=== PATIENT | female | born 1950 | race American Indian/Alaskan Native ===

== ENCOUNTER 2017-09-05 01:15 | Emergency (ER) | payer OTHER, MEDICARE ==
[2017-09-05] MEDS ORDERED: MOTRIN ONE (02:43)
[2017-09-05] MEDS ORDERED: MOTRIN PO ONE (02:45)
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
[2017-09-05 07:11] VITALS: BP 138/75
== END 2017-09-05 07:09 | disposition home or self-care (01) ==
LOC: ED 01:15
DX: S39.012A Strain of muscle, fascia and tendon of lower back, initial encounter (principal); S46.811A Strain of other muscles, fascia and tendons at shoulder and upper arm level, right arm, initial encounter; M25.561 Pain in right knee; M54.2 Cervicalgia; F17.200 Nicotine dependence, unspecified, uncomplicated; V49.9XXA Car occupant (driver) (passenger) injured in unspecified traffic accident, initial encounter; W22.10XA Striking against or struck by unspecified automobile airbag, initial encounter; Y93.89 Activity, other specified; Y99.8 Other external cause status; Y92.413 State road as the place of occurrence of the external cause
CPT/HCPCS: 99283

== ENCOUNTER 2019-01-02 18:34 | Emergency (ER) | payer MEDICARE ==
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
[2019-01-02 19:04] VITALS: BP 144/82
[2019-01-02] MEDS ORDERED: IBUPROFEN PO ONE (23:06)
--- NOTE | 2019-01-02 23:10 | Emergency Department Report ---
- General Chief complaint: Skin/Abscess/Foreign Body Stated complaint: LFT BREAST PULSE/PAIN Time Seen by Provider: 01/02/19 19:01 Source: patient Mode of arrival: Ambulatory Limitations: No Limitations - History of Present Illness Initial comments: 68-year-old -French female states that she has tightness redness and drainage from her left breast 1 week. Patient denies any fever or chills no nausea vomiting. Patient reports that she is taking [id number] pain relief. Patient reports she's had discharge from her nipple. Patient denies any past medical history takes no medications on a daily basis. She reports her last mammogram was maybe 3-6 years ago. Patient does not have a primary care provider. MD complaint: abscess/boil -: week(s) (1) Location: chest (left breasts) Severity scale (0 -10): 10 Quality: aching, sharp Consistency: constant Improves with: none Worsens with: palpation Associated symptoms: denies other symptoms Treatments Prior to Arrival: attempted to drain pus at, other (over the counter acetaminophen.) - Related Data Previous Rx's Medication Instructions Recorded Last Taken Type Cyclobenzaprine HCl [Flexeril 5 MG 5 mg PO TID #20 tab 09/05/17 Unknown Rx TAB] Ibuprofen [Ibuprofen 800] 800 mg PO TID #30 tablet 09/05/17 Unknown Rx Ibuprofen [Motrin 600 MG tab] 600 mg PO Q8H PRN #30 tablet 01/02/19 Unknown Rx cephALEXin [Keflex] 500 mg PO Q8HR #20 cap 01/02/19 Unknown Rx Allergies Allergy/AdvReac Type Severity Reaction Status Date / Time No Known Allergies Allergy Verified 09/05/17 02:45 Abscess Boil HPI - HPI Chief Complaint: Skin/Abscess/Foreign Body Stated Complaint: LFT BREAST PULSE/PAIN Time Seen by Provider: 01/02/19 19:01 Home Medications: Previous Rx's Medication Instructions Recorded Last Taken Type Cyclobenzaprine HCl [Flexeril 5 MG 5 mg PO TID #20 tab 09/05/17 Unknown Rx TAB] Ibuprofen [Ibuprofen 800] 800 mg PO TID #30 tablet 09/05/17 Unknown Rx Ibuprofen [Motrin 600 MG tab] 600 mg PO Q8H PRN #30 tablet 01/02/19 Unknown Rx cephALEXin [Keflex] 500 mg PO Q8HR #20 cap 01/02/19 Unknown Rx Allergies/Adverse Reactions: Allergies Allergy/AdvReac Type Severity Reaction Status Date / Time No Known Allergies Allergy Verified 09/05/17 02:45 ED Review of Systems ROS: Stated complaint: LFT BREAST PULSE/PAIN Other details as noted in HPI Comment: All other systems reviewed and negative Constitutional: denies: chills, fever Skin: lesions (left breasts) ED Past Medical Hx - Past Medical History Previous Medical History?: No - Surgical History Past Surgical History?: Yes Additional Surgical History: cyst removal from left breast - Social History Smoking Status: Current Every Day Smoker Substance Use Type: None - Medications Home Medications: Home Medications Medication Instructions Recorded Confirmed Last Taken Type Cyclobenzaprine HCl [Flexeril 5 MG 5 mg PO TID #20 tab 09/05/17 Unknown Rx TAB] Ibuprofen [Ibuprofen 800] 800 mg PO TID #30 tablet 09/05/17 Unknown Rx Ibuprofen [Motrin 600 MG tab] 600 mg PO Q8H PRN #30 tablet 01/02/19 Unknown Rx cephALEXin [Keflex] 500 mg PO Q8HR #20 cap 01/02/19 Unknown Rx ED Physical Exam - General Limitations: No Limitations General appearance: alert, in no apparent distress - Head Head exam: Present: atraumatic, normocephalic - Eye Eye exam: Present: normal appearance - ENT ENT exam: Present: mucous membranes moist - Neurological Exam Neurological exam: Present: alert, oriented X3, normal gait - Psychiatric Psychiatric exam: Present: normal affect, normal mood - Skin Skin exam: Present: rash - Expanded Skin Exam Expanded Type of lesion: Present: abscess Distribution of rash: other (left breast near nipple and areloa) Description of rash: Present: tenderness, erythematous, swelling, discharge, fluctuant, indurated, other (dimpling of the left breast is appreciated.) ED Course Vital Signs 01/02/19 19:01 Temperature 98.7 F Pulse Rate 86 Respiratory 18 Rate Blood Pressure 144/82 O2 Sat by Pulse 96 Oximetry Critical care attestation.: If time is entered above; I have spent that time in minutes in the direct care of this critically ill patient, excluding procedure time. ED Disposition Clinical Impression: Abscess of breast, left Disposition: DC- TO HOME OR SELFCARE Is pt being admited?: No Does the pt Need Aspirin: No Condition: Stable Instructions: Abscess (ED) Additional Instructions: Please complete antibiotics as prescribed. Pain medication as needed. Continue with warm compresses. Follow-up with a breast specialist for general surgery and I have listed her information below for your convenience. Prescriptions: cephALEXin [Keflex] 500 mg PO Q8HR #20 cap Ibuprofen [Motrin 600 MG tab] 600 mg PO Q8H PRN #30 tablet PRN Reason: Pain , Severe (7-10) Referrals: Roberto Villatoro [Other] - 3-5 Days TOM CHAO DO [Staff Physician] - 3-5 Days Forms: Work/School Release Form(ED)
== END 2019-01-02 23:35 | disposition home or self-care (01) ==
LOC: ED 18:34
DX: N61.1 Abscess of the breast and nipple (principal); F17.200 Nicotine dependence, unspecified, uncomplicated
CPT/HCPCS: 99282